=== PATIENT | female | born 1965 | race Two or more races ===

== ENCOUNTER 2022-04-03 14:05 | Emergency (ER) | payer OTHER ==
[~2022-04-03] VITALS: Ht 167.6 cm; Wt 74.8 kg
[2022-04-03] MEDS ORDERED: KETO10TA2 PO (19:08)
[2022-04-03] MEDS ORDERED: TAMS0.4C PO (19:08)
[2022-04-03] MEDS ORDERED: CIPRO500 MG PO (19:08)
== END 2022-04-03 19:55 | disposition home or self-care (01) ==
LOC: ER 14:05
DX: N20.9 Urinary calculus, unspecified (principal)